=== PATIENT | male | born 1955 | race Two or more races ===

== ENCOUNTER 2022-06-12 15:27 | Emergency (ER) | payer OTHER, MEDICAID ==
[~2022-06-12] VITALS: Ht 167.6 cm; Wt 89.9 kg
[2022-06-12 15:42] VITALS: BP 131/78
[2022-06-12] MEDS ORDERED: KETOROLAC TROMETH 30 MG/ML 1ML VIAL IM ONE (18:45)
== END 2022-06-12 20:30 | disposition home or self-care (01) ==
LOC: ER 15:27
DX: S00.03XA Contusion of scalp, initial encounter (principal); E11.9 Type 2 diabetes mellitus without complications; W18.39XA Other fall on same level, initial encounter; Y93.89 Activity, other specified; Y92.89 Other specified places as the place of occurrence of the external cause; Y99.8 Other external cause status
CPT/HCPCS: 70450